=== PATIENT | male | born 1960 | race Caucasian/White ===

== ENCOUNTER 2018-07-05 21:16 | Emergency (ER) | payer OTHER ==
[~2018-07-05] VITALS: Ht 182.9 cm; Wt 90.9 kg
[~2018-07-05 21:16] MED LIST: CEPHALEXIN500 M1 PO; FLEXERIL 1010 MG/TAB PO; GENTAMICIN EYE D5 ML OS; IMITREX 25MG TA25 MG PO; LEVITRA5 MG PO; MAXALT10 MG; MAXALT5 MG; MOBIC15 MG PO; NEURONTIN100 MG/CAP; NORCO 325 MG-51 TAB PO; PAXIL PO; PAXIL40 MG PO; POLYMYXIN B/TRIMETH OS; SYNTHROID 0.0.025 MG PO; TRAZODONE HCL50 MG PO; VIAGRA 25MG TAB25 MG; VIAGRA 25MG TAB25 MG PO; VIGAMOX 0.5% 3 M3 ML OP; ZANAFLEX2 MG PO; [UNRECOGNIZED DRUG - REMARK]
[2018-07-05 21:20] VITALS: BP 133/89; TEMP 97
[2018-07-05] MEDS ORDERED: NORCO 325 MG-51 TAB PO (22:24)
[2018-07-05] MEDS ORDERED: FLEXERIL 1010 MG/TAB PO (22:24)
[2018-07-05 23:01] VITALS: PULSE 77
== END 2018-07-05 23:02 | disposition home or self-care (01) ==
LOC: COL.ER 21:16
DX: M54.5 Low back pain (principal); F43.10 Post-traumatic stress disorder, unspecified; Z87.39 Personal history of other diseases of the musculoskeletal system and connective tissue
CPT/HCPCS: J1170; J1885

== ENCOUNTER → 2019-10-27 | Outpatient (CLI) | payer OTHER ==
[~2019-10-27] MED LIST changes: +EFFEXOR 3737.5 MG/TA PO
[2019-10-27 16:53] LABS: ALBUMIN 4.5 gm/dL (3.5-5.0); BILIRUBIN,TOTAL 0.3 mg/dL (0.0-1.0); CALCIUM 9.3 mg/dL (8.4-10.2); CREATININE, serum 0.87 (0.66-1.25); POTASSIUM 3.8 mmol/L (3.4-5.0); TOTAL PROTEIN 7.4 gm/dL (6.4-8.2)
[2019-10-27 21:01] LABS: ESTRADIOL 80 pg/mL (11-44); TESTOSTERONE, TOTAL 14 ng/dL (221-716)
== END ==
LOC: COL.LAB 15:35
DX: F64.0 Transsexualism (principal)